=== PATIENT | female | born 1970 | race Caucasian/White ===

== ENCOUNTER 2019-05-22 11:04 | Inpatient (IN) ==
[2019-05-22] MEDS ORDERED: ZOFRAN ODT PO PRN (15:03)
[2019-05-22] MEDS ORDERED: NICOTINE GUM BUCCAL PRN (15:03)
[2019-05-22] MEDS ORDERED: PHENOBARBITAL IV PRN (15:03)
[2019-05-22] MEDS ORDERED: SENOKOT PO PRN (15:03)
[2019-05-22] MEDS ORDERED: TUBERSOL ID ONE (15:03)
[2019-05-22] MEDS ORDERED: ZOFRAN IM PRN (15:03)
[2019-05-22] MEDS ORDERED: IMODIUM PO PRN ×2 (15:03)
[2019-05-22] MEDS ORDERED: MAALOX PLUS LIQUID PO PRN (15:03)
[2019-05-22] MEDS ORDERED: DULCOLAX PR PRN (15:03)
[2019-05-22] MEDS ORDERED: D5W 1,000 ML IV PRN (15:03)
[2019-05-22] MEDS ORDERED: ZOFRAN IV PRN (15:03)
[2019-05-22] MEDS ORDERED: TYLENOL PO PRN (15:03)
[2019-05-22] MEDS ORDERED: DESYREL PO PRN (15:03)
[2019-05-22 15:17] LABS: URINE SOURCE CLEAN CATCH
[2019-05-22 15:29] LABS: BILIRUBIN URINE NEGATIVE (NEGATIVE); BLOOD URINE 1+ (NEGATIVE); CLARITY CLEAR (CLEAR); COLOR YELLOW; GLUCOSE URINE NEGATIVE (NEGATIVE); KETONE URINE NEGATIVE (NEGATIVE); LEUKOCYTES URINE NEGATIVE (NEGATIVE); NITRITE URINE NEGATIVE (NEGATIVE); PH URINE 6.5; PROTEIN URINE NEGATIVE (NEGATIVE); UROBILINOGEN URINE NORMAL
[2019-05-22 15:33] LABS: UR AMPHETAMINES QUAL NONE DETECTED (NONE DETECT); UR BARBITUATES QUAL NONE DETECTED (NONE DETECT); UR BENZODIAZEPIN QUAL NONE DETECTED (NONE DETECT); UR CANNABINOIDS QUAL PRESUMPTIVE POSITIVE (NONE DETECT); UR COCAINE QUAL NONE DETECTED (NONE DETECT); UR METHADONE QUAL NONE DETECTED (NONE DETECT); UR METHAMPHETAMINE QUAL NONE DETECTED (NONE DETECT); UR OPIATES QUAL NONE DETECTED (NONE DETECT); UR OXYCODONE QUAL NONE DETECTED (NONE DETECT); UR PCP QUAL NONE DETECTED (NONE DETECT); UR PROPOXYPHENE QUAL NONE DETECTED (NONE DETECT); UR TCA QUAL NONE DETECTED (NONE DETECT)
[2019-05-22 15:37] LABS: URINE BACTERIA 1+ /HFP; URINE EPITHELIAL CELLS <10 /HPF (<10)
[2019-05-22 15:38] LABS: URINE CAST NONE SEEN /LPF; URINE CRYSTAL NONE SEEN /HPF; URINE RBC <10 /HPF (<10); URINE WBC <10 /HPF (<10); URINE YEAST NONE SEEN /HPF
[2019-05-22 15:44] LABS: HEMATOCRIT 28.7 % (37.0-47.0); HEMOGLOBIN 8.6 g/dL (12.0-16.0); MCH 25.7 PG (27-31); MCV 85.9 FL (81-99); MPV 9.3 FL (7.4-10.4); RBC 3.34 XMIL (4.2-5.4); RDW 18.7 % (11.5-14.5); WBC 9.19 X1000 (4.8-10.8)
[2019-05-22 16:04] LABS: AGAP 9; ALBUMIN 4.2 g/dL (3.5-5.0); ALKALINE PHOSPHATASE 80 U/L (32-104); AMYLASE 62 U/L (20-200); BUN 11 mg/dL (8-22); CALCIUM 9.2 mg/dL (8.8-10.2); CHLORIDE 104 mmol/L (98-107); COSMO 274; CREATININE 0.8 mg/dL (0.5-0.9); ESTIMATED GFR > 60; GLUCOSE 88 mg/dL (70-104); GOT 15 U/L (10-30); GPT 9 U/L (10-36); LIPASE 21 U/L (13-60); POTASSIUM 4.3 mmol/L (3.5-5.1); SODIUM 138 mmol/L (136-145); TCO2 26 mmol/L (25-35); TOTAL PROTEIN 6.8 g/dL (6.3-8.3)
[2019-05-22] MEDS ORDERED: ATARAX PO PRN (16:16)
[2019-05-22] MEDS ORDERED: BENTYL PO PRN (16:16)
[2019-05-22] MEDS: NICODERM PATCH TD PRN (16:24)
[2019-05-22] MEDS: ROBAXIN PO PRN (16:40)
[2019-05-22] MEDS: SINEMET 25/100 PO PRN (16:40)
[2019-05-22] MEDS: SUBOXONE 2 MG/0.5 MG FILM SL SCH (16:40)
[2019-05-22] MEDS: MOTRIN PO PRN (20:54)
[2019-05-22] MEDS: LIBRIUM PO PRN (20:54)
[2019-05-22] MEDS: SEROQUEL PO PRN (20:54)
[2019-05-23] MEDS: SUBOXONE 2 MG/0.5 MG FILM SL SCH ×2 (04:34→16:19)
[2019-05-23] MEDS: PROTONIX PO SCH (06:17)
--- NOTE | 2019-05-23 08:24 | HISTORY AND PHYSICAL ---
SOCIAL HISTORY: Patient is a 49-year-old female who is on disability. PAST MEDICAL HISTORY: Chronic back pain, history of bipolar depression, concussion due to a softball injury, gastric bypass in 2006. MEDICATIONS: She is on no current medications. ALLERGIES: No known drug allergies. 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 Denies any headaches, blurred vision, change in her vision. Denies any focalized numbness, tingling or weakness in her extremities. Does have diarrhea but denies constipation, melena or hematochezia. Denies dysuria, frequency, urgency, hesitancy. SUBSTANCE ABUSE HISTORY: The patient was in [facility] in [place] for 2 months, outpatient. Only remained sober for the 2 months she was there. Started using again so she stopped going. Notes that substance abuse has caused relationship problems, financial problems. She states she started using money for her electricity bill on drugs. She started drinking in her 20s, had not drank for years. Started marijuana in her 30s, currently uses only rarely. Started Xanax in her 40s. Rarely uses. Tried stimulants in her 40s and has not used in 2 years. Started opiates in her 40s, started taking as prescribed until approximately 2 years ago and now she is taking 10 to 15 [place] 10s a day. Started smoking at 16, currently smokes a pack a day. FAMILY HISTORY: Noncontributory. PHYSICAL EXAMINATION: VITAL SIGNS: Reviewed and stable. GENERAL: Patient is awake, alert, oriented. She is in no current respiratory distress, but she is somewhat ill-appearing, constantly fidgeting, anxious, unable to sit still. She has to frequently be redirected to answer questions. HEENT: Normocephalic. NECK: Supple. CARDIOVASCULAR: Regular rate. CHEST: Clear. ABDOMEN: Soft. EXTREMITIES: Moves all extremities. NEUROLOGIC: No focal changes. SKIN: Warm, dry, no rashes. LABS: Pending. ASSESSMENT: 1. Nausea and vomiting. 2. Abdominal pain. 3. Myalgias. 4. Paresthesias. 5. Paroxysmal sweating. 6. Opiate abuse withdrawal and stabilization. PLAN: We will admit patient to the hospital, place her on Suboxone, begin counseling, use symptomatic medications. We will follow blood pressures. Further orders as needed. cc: Jaime Boykin MD
[2019-05-23] MEDS: FOLIC ACID PO SCH (09:28)
[2019-05-23] MEDS: THERA M PLUS PO SCH (09:28)
[2019-05-23] MEDS: VITAMIN B-1 PO SCH (09:28)
[2019-05-23] MEDS: MOTRIN PO PRN (12:32)
[2019-05-23] MEDS: LIBRIUM PO PRN (12:32)
[2019-05-23] MEDS: ROBAXIN PO PRN (12:32)
[2019-05-23] MEDS: NICODERM PATCH TD PRN (13:42)
[2019-05-23] MEDS: SINEMET 25/100 PO PRN (13:49)
[2019-05-23] MEDS: SEROQUEL PO PRN (21:48)
--- NOTE | 2019-05-24 00:19 | PROGRESS NOTE ---
DATE: 05/23/2019 SUBJECTIVE: Patient notes overall she is feeling a little bit better. Still having some muscle aches. Denies any fevers or chills. Denies cough, congestion. PHYSICAL EXAMINATION: Vital Signs: Temperature 98 degrees, pulse 50, respiratory rate 18, BP 97/48. General: Patient is in no current respiratory distress, pleasant to talk with. HEENT: Normocephalic. Neck: Supple. Cardiovascular: Regular rate. No murmurs. Chest: Clear. Abdomen: Soft. Extremities: Moves all extremities. Neurologic: She has no focal changes. Still has some tremors and she is fidgety on exam. ASSESSMENT: 1. Nausea, vomiting. 2. Abdominal pain. 3. Myalgias. 4. Paresthesias. 5. Paroxysmal sweating. 6. Opiate abuse, withdrawal and stabilization. PLAN: We will continue patient in the hospital. Continue Suboxone. We are not going to increase her dose currently. We will stay at the 4 mg. She does have low blood pressure, but she seems to be tolerating it very well. Hopefully, she can discharge home over the next day or 2. cc: Jaime Boykin MD
[2019-05-24] MEDS: PROTONIX PO SCH ×2 (06:06→08:21)
[2019-05-24] MEDS: SUBOXONE 2 MG/0.5 MG FILM SL SCH (06:06)
[2019-05-24] MEDS: THERA M PLUS PO SCH (08:21)
[2019-05-24] MEDS: FOLIC ACID PO SCH (08:21)
[2019-05-24] MEDS: VITAMIN B-1 PO SCH (08:21)
[2019-05-24] MEDS ORDERED: SUBOXONE 2 MG/0.5 MG FILM SL SCH (09:00)
[2019-05-24] MEDS ORDERED: SUBOXONE 2 MG/0.5 MG FILM SL ONE (09:00)
[2019-05-24] MEDS: NICODERM PATCH TD PRN (11:52)
--- NOTE | 2019-05-24 17:37 | PROGRESS NOTE ---
DATE: 05/24/2019 SUBJECTIVE: Patient is feeling a little bit better, although Suboxone does help with her withdrawal symptoms. It does not last and notes that she starts having cravings several hours before its time for her next dose. OBJECTIVE: Vital signs: Temperature 98 degrees, pulse 61, respiratory rate 18, BP 115/61. General: Patient is very pleasant. She is in no respiratory distress. HEENT: Normocephalic. Neck: Supple. Cardiovascular: Regular rate. Chest: Clear. Abdomen: Soft. Extremities: Moves all extremities. ASSESSMENT: 1. Nausea and vomiting. 2. Abdominal pain. 3. Myalgias. 4. Paresthesias. 5. Paroxysmal sweating. 6. Opiate abuse, withdrawal and stabilization. PLAN: We will continue patient in the hospital. We will increase her Suboxone to 8 as she is having withdrawal symptoms before its time for the next dose. We will continue to follow. Continue counseling further orders as needed. cc: Jaime Boykin MD
[2019-05-24] MEDS: SUBOXONE 8 MG/2 MG FILM SL SCH (21:17)
[2019-05-25] MEDS: SEROQUEL PO PRN (01:22)
[2019-05-25] MEDS: PROTONIX PO SCH (06:35)
[2019-05-25 07:39] VITALS: BP 135/64
[2019-05-25] MEDS: THERA M PLUS PO SCH (08:34)
[2019-05-25] MEDS: SUBOXONE 8 MG/2 MG FILM SL SCH (08:34)
[2019-05-25] MEDS: VITAMIN B-1 PO SCH (08:34)
[2019-05-25] MEDS: FOLIC ACID PO SCH (08:34)
== END 2019-05-25 10:10 | disposition home or self-care (01) | DRG 897 ==
LOC: SUATTDRO 13:28 → P.DIRADM 13:28 → P.MEDSURG 14:12
PROVIDERS: ADMIT Family Medicine; ATTEND Family Medicine